=== PATIENT | female | born 1950 | race Asian ===

== ENCOUNTER 2025-05-14 20:24 | Emergency (ER) | payer MEDICARE, OTHER ==
[~2025-05-14] VITALS: Ht 149.9 cm; Wt 77.0 kg
[2025-05-14 20:47] VITALS: TEMP 98.5
[2025-05-14 21:45] VITALS: BP 174/99; PULSE 66; RESP 17; O2SAT 98
== END 2025-05-14 22:26 | disposition home or self-care (01) ==
LOC: EMS 20:24
DX: L92.8 Other granulomatous disorders of the skin and subcutaneous tissue (principal)
CPT/HCPCS: 99282; Z7502